=== PATIENT | female | born 1990 | race Caucasian/White ===

== ENCOUNTER 2021-10-03 12:40 | Emergency (ER) | payer BC ==
[2021-10-03] MEDS ORDERED: Bacitracin 1 PK ONE (15:41)
== END 2021-10-03 15:53 | disposition home or self-care (01) ==
LOC: ERS 12:40
DX: S51.812A Laceration without foreign body of left forearm, initial encounter (principal); S51.811A Laceration without foreign body of right forearm, initial encounter; W54.0XXA Bitten by dog, initial encounter
CPT/HCPCS: 12002